=== PATIENT | male | born 2000 | race Caucasian/White ===

== ENCOUNTER 2019-08-24 19:47 | Emergency (ER) | payer BC, OTHER ==
--- NOTE | 2019-08-24 21:04 | ED ---
General Adult HPI - General Chief complaint: Skin/Abscess/Foreign Body Stated complaint: Male Time Seen by Provider: 08/24/19 20:13 Source: patient Mode of arrival: ambulatory Limitations: no limitations - History of Present Illness Initial comments: Dictation was produced using [employer] dictation software. please excuse any grammatical, word or spelling errors. This patient was cared for during a federal and state declared state of emergency secondary to Covid 19 Chief Complaint: 19-year-old male presents with multiple skin lesions. History of Present Illness: 19-year-old male who presents with multiple skin lesions. Patient states that the worst one is in his left groin. States that it started as a little simple cyst. States that it began draining. Patient states that he has one partner that he is sexually active with. To his knowledge she does not have any sexually transmitted disease. Patient states that the lesions are painful. They are diffuse on his body including his upper and lower extremities. Denies any Fridays. No constitutional symptoms. No nausea or vomiting. The ROS documented in this emergency department record has been reviewed and confirmed by me. Those systems with pertinent positive or negative responses have been documented in the HPI. All other systems are other negative and/or noncontributory. PHYSICAL EXAM: General Impression: Alert and oriented x3, not in acute distress HEENT: Normocephalic atraumatic, extra-ocular movements intact, pupils equal and reactive to light bilaterally, mucous membranes moist. Cardiovascular: Heart regular rate and rhythm Chest: Able to complete full sentences, no retractions, no tachypnea Abdomen: abdomen soft, non-tender, non-distended, no organomegaly Musculoskeletal: Pulses present and equal in all extremities, no peripheral edema Motor: no focal deficits noted Neurological: CN II-XII grossly intact, no focal motor or sensory deficits noted Skin: Multiple cystic, dull normal lesions to his skins. Palms and soles are spared. No lesions on the mucosa orally. She at times were clear. Psych: Normal affect and mood ED course: 19 yo Old male with multiple cystic acne-like lesions to his skin. As upon arrival are within acceptable limits.Urinalysis is unremarkable. Urine sent for STD testing. Patient given ceftriaxone IM. Patient given prescription for Keflex to be taken orally for 5 days. Advised to follow-up with primary care physician. Clinical presentation consistent with folliculitis. - Related Data Previous Rx's Medication Instructions Recorded Cephalexin [Keflex] 500 mg PO Q6HR 5 Days #20 cap 08/24/19 Allergies Allergy/AdvReac Type Severity Reaction Status Date / Time No Known Allergies Allergy Verified 08/24/19 20:07 Review of Systems ROS Statement: Those systems with pertinent positive or pertinent negative responses have been documented in the HPI. ROS Other: All systems not noted in ROS Statement are negative. Past Medical History Past Medical History: No Reported History History of Any Multi-Drug Resistant Organisms: None Reported Past Surgical History: Orthopedic Surgery Past Psychological History: No Psychological Hx Reported Smoking Status: Current every day smoker Past Alcohol Use History: Occasional Past Drug Use History: None Reported General Exam Limitations: no limitations Course Vital Signs 08/24/19 20:05 Temperature 98.5 F Pulse Rate 71 Respiratory 20 Rate Blood Pressure 151/60 O2 Sat by Pulse 99 Oximetry Medical Decision Making - Lab Data Lab Results 08/24/19 Range/Units 20:43 Urine Color Light Yellow Urine Appearance Clear (Clear) Urine pH 6.5 (5.0-8.0) Ur Specific [place] 1.007 (1.001-1.035) Urine Protein Negative (Negative) Urine Glucose (UA) Negative (Negative) Urine Ketones Negative (Negative) Urine Blood Negative (Negative) Urine Nitrite Negative (Negative) Urine Bilirubin Negative (Negative) Urine Urobilinogen <2.0 (<2.0) mg/dL Ur Leukocyte Esterase Negative (Negative) Disposition Clinical Impression: Folliculitis Disposition: HOME SELF-CARE Condition: Good Instructions (If sedation given, give patient instructions): Folliculitis (ED) Prescriptions: Cephalexin [Keflex] 500 mg PO Q6HR 5 Days #20 cap Is patient prescribed a controlled substance at d/c from ED?: No Referrals: Jv Anthony MD [REFERRING] - 1-2 days Time of Disposition: 21:35
[2019-08-24 21:11] LABS: Appearance,Urine Clear (Clear); Bilirubin,Urine Negative (Negative); Blood,Urine Negative (Negative); Color,Urine Light Yellow; Glucose,Urine (UA) Negative (Negative); Ketones,Urine Negative (Negative); Leukocyte Esterase,Urine Negative (Negative); Nitrite,Urine Negative (Negative); PH, Urine 6.5 (5.0-8.0); Protein,Urine Negative (Negative); Specific Gravity,Urine 1.007 (1.001-1.035); Urobilinogen,Urine <2.0 mg/dL (<2.0)
[2019-08-24] MEDS ORDERED: cefTRIAXone 1,000 MG VIAL (IM USE) IM STA (21:33)
[2019-08-24 21:55] VITALS: BP 132/87; PULSE 83; RESP 16; TEMP 98.3
== END 2019-08-24 21:57 | disposition home or self-care (01) ==
LOC: EC 19:47
DX: L73.9 Follicular disorder, unspecified (principal); F17.200 Nicotine dependence, unspecified, uncomplicated
CPT/HCPCS: 96372; 99283; 81003; J0696